=== PATIENT | male | born 1955 | race Caucasian/White ===

== ENCOUNTER 2022-07-30 10:36 | Outpatient (CLI) | payer MEDICARE, SELFPAY ==
[2022-07-30 22:16] LABS: Albumin* 4.7 g/dL (3.3-5.0); Chloride* 99 mmol/L (96-114); Potassium* 4.3 mmol/L (3.6-5.1); Sodium* 138 mmol/L (135-149)
[2022-07-30 22:19] LABS: Alanine Aminotransferase* 42 U/L (4-50); Alkaline Phosphatase* 56 U/L (40-150); Aspartate Amino Transferase* 31 U/L (12-35); Blood Urea Nitrogen* 14 mg/dL (7-30); Calcium* 9.3 mg/dL (8.4-10.6); Carbon Dioxide* 28 mmol/L (20-32); Glucose* 97 mg/dL (60-115); Triglycerides* 193 mg/dL (40-149)
[2022-07-30 22:20] LABS: HDL Cholesterol* 41 mg/dL (>=40); Magnesium* 1.8 mg/dL (1.5-2.6)
[2022-07-30 22:42] LABS: Cholesterol* 182 mg/dL (90-199); Creatinine Urine 180.9 mg/dL; Estimated Glomerular Filt Rate 82 ml/min; LDL Cholesterol Calculated 102 mg/dL (<100)
[2022-07-30 22:48] LABS: Microalbumin Creatinine Ratio 0 mg/g (0-30); Microalbumin Urine 1 mg/dL
[2022-07-30 23:29] LABS: Vitamin B12* 255 pg/mL (243-894)
== END 2022-07-30 10:37 | disposition home or self-care (01) ==
PROVIDERS: PCP Family Medicine; Visit Provider Family Medicine
DX: Z00.00 Encounter for general adult medical examination without abnormal findings (principal); E78.5 Hyperlipidemia, unspecified; I10 Essential (primary) hypertension; R73.03 Prediabetes; M10.9 Gout, unspecified
CPT/HCPCS: 80053; 80061; 82043; 82570; 82607; 83735

== ENCOUNTER 2023-03-21 10:34 | Outpatient (CLI) | payer MEDICARE, SELFPAY | END 2023-03-21 10:35 | disposition home or self-care (01) | LOC: NFLDREF 03-22 14:44 | PROVIDERS: PCP Family Medicine; Referring Provider Family Medicine; Visit Provider Family Medicine | DX: E29.1 Testicular hypofunction (principal) | CPT/HCPCS: 82728; 83001; 83002; 84146; 84403 ==

== ENCOUNTER 2023-09-20 07:38 | Outpatient (CLI) | payer MEDICARE, SELFPAY ==
--- NOTE | 2023-09-20 08:00 | CRLHL7_ITS ---
For Patients: As a result of the Century Cures Act, medical imaging exams and procedure reports are released immediately into your electronic medical record. You may view this report before your referring provider. If you have questions, please contact your health care provider. Indication: Solitary pulmonary nodule Technique: CT Chest 75ml Isovue [address] Please note that all CT scans at this facility use dose modulation, iterative reconstruction, and/or weight-based dosing when appropriate to reduce radiation dose to as low as reasonably achievable. Comparison: Chest x-ray 09/11/2023 Findings: No mediastinal, hilar or axillary adenopathy. Mild atherosclerotic disease. Coronary artery calcifications. Mild fatty liver. No pleural or pericardial effusion. No suspicious thyroid lesion. No fracture or suspicious osseous lesion. Degenerative changes thoracic spine. Calcified granulomas are present within the left lower lobe measuring up to 1.1 cm. Additional calcified granuloma within the right middle lobe measuring 1.3 cm. Additional smaller calcified nodules are present elsewhere. Impression: Benign calcified nodules bilaterally. No further follow-up indicated. Please note that all CT scans at this facility use dose modulation, iterative reconstruction, and/or weight-based dosing when appropriate to reduce radiation dose to as low as reasonably achievable. Dictated by Fazal Kinney MD @ 09/20/2023 10:49:37 AM (Electronically Signed)
[2023-09-20 08:07] LABS: Estimated Glomerular Filt Rate 81 ml/min
== END 2023-09-20 07:39 | disposition home or self-care (01) ==
LOC: CT 07:39
PROVIDERS: PCP Family Medicine; Visit Provider Family Medicine
DX: R91.1 Solitary pulmonary nodule (principal)
CPT/HCPCS: 36415; 71260; 82565; Q9967

== ENCOUNTER 2023-10-23 08:46 | Outpatient (CLI) | payer MEDICARE, SELFPAY | END 2023-10-23 08:47 | disposition home or self-care (01) | PROVIDERS: PCP Family Medicine; Visit Provider Family Medicine | DX: I10 Essential (primary) hypertension (principal); R73.03 Prediabetes; E29.1 Testicular hypofunction; M1A.49X0 Other secondary chronic gout, multiple sites, without tophus (tophi) | CPT/HCPCS: 80053; 80061; 82043; 82570; 84270; 84402; 84403; 84550 ==

== ENCOUNTER 2024-09-09 07:30 | Outpatient (RCR) | payer MEDICARE, SELFPAY ==
--- NOTE | 2024-07-29 08:25 | PT.OPEX ---
PT [place] Outpatient Eval PT [facility] Outpatient Eval Start: 07/22/24 08:41 Freq: Status: Active Protocol: Document 07/29/24 07:02 MLS (Rec: 07/29/24 08:23 MLS [id number]) E-signed By Nelly Weir DPT Physical Therapy Outpatient Evaluation Insurance Information Recert Due Date 10/26/24 Insurance Name Medicare B,[employer]are Medical Diagnosis M76.892 other specified enthesopathies of left lower limb, excluding foot Treating Diagnosis Left hip abductor tendonitis B hamstring tightness Left It band tightness Left hip flexor tightness Referring MD Dr. Romero Subjective Subjective Patient is a 68 year old male who presents to physical therapy with signs and symptoms consistent with left hip abductor tendonitis. He states that he is having some left hip pain which started 2- 3 years ago, unsure what from. He states that it has gradually gotten worse over time. He reports that it comes and goes. He does not report report numbness and tingling in his leg. He states that the pain radiates down into his left leg. He did have xrays which showed thinning cartilage and a bone spur. He states that he likes to walk for exercise and he walks 3.5-4 miles three times per week. He states that he has tight hamstrings with the left side being worse. Aggravating factors include: sleeping, sitting for too long . Alleviating factors include : movement. Significant past medical history includes pre-diabetes, hypertension. Patient would like to achieve less tightness and pain through physical therapy sessions. 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 Precautions Weight Bearing Status Full Weight Bearing Therapy Limitations/Systems Review Not Limited Objective Other/Pertinent Objective KNEE ROM Left and Right: Extension/Flexion: -10-120 HIP ROM Flexion: 90 with B hamstring tightness Internal Rotation: R 10, L 5 External Rotation: R 50, L 45 Abduction: 30 B LLE MMT: Hip flexion: R 4/5 L 4/5 Hip abduction: R 4/5 L 4/5 Hip extension: R 4/5 L 4/5 Knee flexion: R 5/5 L 5/5 Knee extension: R 5/5 L 5/5 SPECIAL TEST -Ferreira Compression: positive on L -Hip quadrant test: negative B -DAWSON: negative B -FADIR negative B -SLR: hamstring tightness noted B -Trochanteric Bursitis Test: positive on L for pain JOINT MOBILITY/PALPATION moderate tenderness to hip abductor insertion, mild tenderness to gluteal region, severe tenderness to left IT- band TX: Access Code: [email or web address] URL: [email or web address] Date: 07/29/2024 Prepared by: Nelly Weir Exercises - Seated Hamstring Stretch - 1 x daily - 7 x weekly - 3 sets - 10 reps - Supine Hamstring Stretch - 1 x daily - 7 x weekly - 3 sets - 10 reps - Supine Figure 4 Piriformis Stretch - 1 x daily - 7 x weekly - 3 sets - 10 reps - ITB Stretch at Wall - 1 x daily - 7 x weekly - 3 sets - 10 reps - Supine ITB Stretch - 1 x daily - 7 x weekly - 3 sets - 10 reps - Modified Min Stretch - 1 x daily - 7 x weekly - 3 sets - 10 reps Functional Test Performed & Score 55/80 A score increase of 6 points shows a significant improvement in lower extremity function. Assessment Assessment/Impression Pt is a 68 year old male who presents with concerns of left hip abductor tendonitis and IT-band pain. Patient also has notable objective findings including limited ROM, tenderness to palpation, and decreased strength which are also likely contributing to the problem. Patient is a good candidate for skilled therapy to target deficits described above. Skilled PT intervention is necessary for use of therapeutic exercise manual therapy, neuromuscular re- education, gait training, and therapeutic activity. Functional impairments include difficulty with: walking, sitting, sleeping, standing, exercising and ADLs. See appropriate sections of PT eval for complete list of goals and POC. D/C plan and criteria is for pt to achieve the goals as listed below or until max rehab potential is met. Pt was agreeable with plan of care and goals established. Primary Functional Limitations standing walking exercising ADLs sitting sleeping Plan of Care Rehabilitation Potential Good Physical Therapy Goals Within 10-12 weeks: 1.Pt will demonstrate independence in performance of home exercise program with the use of video and/or handouts in order to optimize functional mobility and reduce risk for re-injury. 2.Pt will demonstrate consistent HEP compliance to ensure progress in reaching established goals during course of care. 3.Patient will be able to sit and drive for up to one hour without pain. 4.Patient will report pain levels <2/10 with all activities in order to improve functional mobility at home, work and during functional leisure activities. 5.Patient is able to sleep without waking more than one time due to pain in a 6-8 hour time frame. 6.Patient will be able to walk up to one mile without pain. 7.Pt will be able to ascend/ descend 1 flight of stairs in order to perform ADLs pain free. 8.Pt will exhibit 5 pt improvement in Lower Extremity Functional Scale to demonstrate functional improvement and progress towards goals Coordination/Communication With Referral Source Treatment Plan/Direct Interventions Gait Training,Joint Mobilization,Manual Therapy, Neuromuscular Re-ed, Therapeutic Activities, Therapeutic Exercises, Ultrasound Patient Will Be Discharged From Therapy Independently Progressing Evaluation Billing Untimed Code Treatment Minutes 30 Complexity Low Certification Information Provider Signature Required Yes Provider Signature Shows Agreement With POC & Medical Necessity Physician NPI Number Write NPI# Here Physician Comment/Change : Physician Signature & Date Requested Please Sign/Date Here
== END 2024-11-09 08:32 | disposition home or self-care (01) ==
PROVIDERS: Visit Provider Orthopaedic Surgery Sports Medicine
DX: M76.892 Other specified enthesopathies of left lower limb, excluding foot (principal); M62.89 Other specified disorders of muscle; Z51.89 Encounter for other specified aftercare
CPT/HCPCS: 97110; 97140; 97161

== ENCOUNTER 2024-09-22 11:02 | Outpatient (CLI) | payer MEDICARE, SELFPAY | END 2024-09-22 11:03 | disposition home or self-care (01) | LOC: NFLDUCREF 11:03 | PROVIDERS: PCP Physician Assistant; Visit Provider Physician Assistant | DX: M25.571 Pain in right ankle and joints of right foot (principal) | CPT/HCPCS: 85379 ==

== ENCOUNTER 2025-02-16 10:15 | Outpatient (RCR) | payer MEDICARE, SELFPAY ==
--- NOTE | 2024-12-30 09:03 | PT.OPEX ---
PT [place] Outpatient Eval PT [facility] Outpatient Eval Start: 12/28/24 16:43 Freq: Status: Active Protocol: Document 12/30/24 06:59 MLS (Rec: 12/30/24 09:01 MLS [id number]) E-signed By Nelly Weir DPT Physical Therapy Outpatient Evaluation Insurance Information Recert Due Date 03/29/25 Insurance Name Medicare B,are Medical Diagnosis M25.569 pain in unspecified knee Treating Diagnosis Right hamstring/gastroc tightness posterior knee pain Referring MD Hermelinda Chu PA Subjective Subjective Patient is a 69 year old male who presents to physical therapy with signs and symptoms consistent with right knee pain. He states that he has pain in the back of his knee that started three weeks ago. He woke up in the middle of the night with pain. He went to urgent care last Saturday and they sent to PT. He did not have xrays. He states that it felt kind of like a cramp. He states that it radiates down his calf at times. He states it is keeping him from walking. Aggravating factors include: bending, walking. Alleviating factors include: nothing. Significant past medical history includes diabetes and hypertension. Patient would like to achieve less pain and pain free walking through physical therapy sessions. 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 Precautions Weight Bearing Status Full Weight Bearing Therapy Limitations/Systems Review Not Limited Objective Other/Pertinent Objective GAIT/FUNCTIONAL MOBILITY Single leg stance: increase in pain on R Squat: no increase in pain KNEE ROM Flexion: R 100 L 120 Extension: R -5 L -5 HIP ROM WNL B LLE MMT: Hip flexion: R 4+/5 L 4+/5 Hip abduction: R 4+/5 L 4+/5 Hip extension: R 4+/5 L 4+/5 Knee flexion: R 5/5 L 5/5 Knee extension: R 5/5 L 5/5 SPECIAL TEST -Anterior drawer: terra -Nikolas test: neg -Posterior Drawer: neg -Valgus Test: neg -Varus Test: neg -Joint line tenderness: none -Jasmyne test: neg -hyper flexion test: neg -Thessaly test: neg -Ferreira Compression: neg -Hip quadrant test: neg -DAWSON test: neg -FADIR test: neg -Trochanteric Bursitis Test: neg JOINT MOBILITY/PALPATION Tenderness with palpation of posterior knee, gastroc head, hamstring TX: Access Code: [email or web address] URL: [email or web address] Date: 12/30/2024 Prepared by: Nelly Weir Exercises - Gastroc Stretch with Foot at Wall - 1 x daily - 7 x weekly - 3 sets - 10 reps - Soleus Stretch with Foot at Wall - 1 x daily - 7 x weekly - 3 sets - 10 reps - Seated Hamstring Stretch - 1 x daily - 7 x weekly - 3 sets - 10 reps - Supine Hamstring Stretch - 1 x daily - 7 x weekly - 3 sets - 10 reps Assessment Assessment/Impression Pt is a 69 year old male who presents with concerns of right knee pain. Patient also has notable objective findings including limited ROM, tenderness to palpation, and decreased strength which are also likely contributing to the problem. Patient is a good candidate for skilled therapy to target deficits described above. Skilled PT intervention is necessary for use of therapeutic exercise manual therapy, neuromuscular re- education, gait training, and therapeutic activity. Functional impairments include difficulty with: standing, walking, driving, exercising and ADLs. See appropriate sections of PT eval for complete list of goals and POC . D/C plan and criteria is for pt to achieve the goals as listed below or until max rehab potential is met. Pt was agreeable with plan of care and goals established. Primary Functional Limitations standing walking driving exercising ADLs Plan of Care Rehabilitation Potential Good Physical Therapy Goals Within 10-12 weeks: 1.Pt will demonstrate independence in performance of home exercise program with the use of video and/or handouts in order to optimize functional mobility and reduce risk for re-injury. 2.Pt will demonstrate consistent HEP compliance to ensure progress in reaching established goals during course of care. 3.Patient will be able to sit and drive for up to one hour without pain. 4.Patient will report pain levels <2/10 with all activities in order to improve functional mobility at home, work and during functional leisure activities. 5.Patient is able to sleep without waking more than one time due to pain in a 6-8 hour time frame. 6.Patient will be able to walk up to one mile without pain. 7.Pt will be able to ascend/ descend 1 flight of stairs in order to perform ADLs pain free. Coordination/Communication With Referral Source Treatment Plan/Direct Interventions Joint Mobilization,Manual Therapy,Neuromuscular Re-ed, Therapeutic Activities, Therapeutic Exercises Patient Will Be Discharged From Therapy Independently Progressing Evaluation Billing Untimed Code Treatment Minutes 30 Complexity Low Certification Information Provider Signature Required Yes Provider Signature Shows Agreement With POC & Medical Necessity Physician NPI Number Write NPI# Here Physician Comment/Change : Physician Signature & Date Requested Please Sign/Date Here
== END 2025-03-24 12:17 | disposition home or self-care (01) ==
DX: M25.561 Pain in right knee (principal); Z51.89 Encounter for other specified aftercare
CPT/HCPCS: 97110; 97140; 97161